=== PATIENT | male | born 1995 | race African-American/Black ===

== ENCOUNTER 2024-06-02 18:42 | Emergency (ER) | payer OTHER ==
[2024-06-02] MEDS ORDERED: IBUPROFEN 400 MG TABLET (FP) PO ONE (19:01)
[2024-06-02] MEDS: IBUPROFEN 600 MG TABLET (FP) PO ONE (19:03)
[2024-06-02 19:05] VITALS: BP 107/74; PULSE 80; RESP 15; TEMP 97.2; BMI 21.9
== END 2024-06-02 19:29 | disposition home or self-care (01) ==
LOC: FER 18:42
DX: M94.0 Chondrocostal junction syndrome [Tietze] (principal); M54.9 Dorsalgia, unspecified; R07.81 Pleurodynia
CPT/HCPCS: 71046-TC-FY; 71101-TC-RT-FY; 99284-25